=== PATIENT | female | born 1970 | race Caucasian/White ===

== ENCOUNTER 2023-03-31 16:16 | Emergency (ER) | payer SELFPAY | END 2023-03-31 18:30 | disposition home or self-care (01) | LOC: MW.ED 16:16 | DX: Z00.00 Encounter for general adult medical examination without abnormal findings (principal) | CPT/HCPCS: 99281; 99282 ==

== ENCOUNTER 2023-07-01 06:38 | Day surgery (SDC) | payer BC, MEDICAID ==
[~2023-07-01 06:38] MED LIST: ceFAZolin 2 GM in Sodium Chloride 0.9% 50 ML IV ONE
[2023-07-01] MEDS ORDERED: Propofol 200 MG/20 ML SDV ONE ×3 (07:14→11:00)
[2023-07-01] MEDS: Lactated Ringers 1,000 ML IV SCH (07:14)
[2023-07-01] MEDS ORDERED: Midazolam 1 MG/ML 2 ML SDV ONE ×2 (07:14→08:57)
[2023-07-01] MEDS ORDERED: fentaNYL 250 MCG/5 ML SDV ONE (07:14)
[2023-07-01] MEDS ORDERED: ceFAZolin 1 GM Vial ONE ×2 (07:19→07:49)
[2023-07-01] MEDS ORDERED: Bupivacaine 0.5% 30 ML SDV ONE (07:19)
[2023-07-01] MEDS ORDERED: Dexamethasone 4 MG/ML 5 ML MDV ONE (07:19)
[2023-07-01] MEDS ORDERED: Lidocaine 1% 20 ML MDV ONE (07:19)
[2023-07-01] MEDS ORDERED: Ondansetron 4 MG/2 ML SDV ONE (07:19)
[2023-07-01] MEDS ORDERED: Rocuronium Bromide 50 MG/5 ML Syringe ONE (07:34)
[2023-07-01] MEDS ORDERED: Succinylcholine/Sod PF 100 MG/5 ML SYRINGE IV ONE (07:34)
[2023-07-01] MEDS ORDERED: Ondansetron 4 MG/2 ML SDV IVPUSH PRN (07:36)
[2023-07-01] MEDS ORDERED: fentaNYL 50 MCG/ML SDV IVPUSH PRN (07:36)
[2023-07-01] MEDS ORDERED: Metoclopramide 10 MG/2 ML SDV IVPUSH PRN (07:36)
[2023-07-01] MEDS ORDERED: HYDROmorphone 1 MG/ML Syringe IVPUSH PRN (07:36)
[2023-07-01] MEDS ORDERED: Naloxone 0.4 MG/ML SDV IVPUSH PRN (07:36)
[2023-07-01] MEDS ORDERED: Morphine 2 MG/ML SYRINGE IVPUSH PRN (07:36)
[2023-07-01] MEDS ORDERED: droPERidol 5 MG/2 ML SDV IVPUSH PRN (07:36)
[2023-07-01] MEDS ORDERED: Albuterol 0.083% 2.5 MG/3 ML Neb Soln NEB PRN (07:36)
[2023-07-01] MEDS ORDERED: Water For Injection, Sterile 20 ML ONE ×2 (07:49→08:17)
[2023-07-01] MEDS ORDERED: ePHEDrine 50 MG/ML SDV ONE (08:17)
[2023-07-01] MEDS ORDERED: propofoL 0 ML ONE (09:19)
[2023-07-01] MEDS ORDERED: Ketorolac 30 MG/ML SDV ONE (11:31)
[2023-07-01] MEDS ORDERED: fentaNYL 100 MCG/2 ML SDV ONE (11:40)
== END 2023-07-01 13:30 | disposition home or self-care (01) ==
LOC: MW.SDS 06:38
PROVIDERS: ATTEND Podiatrist Foot & Ankle Surgery
DX: M20.11 Hallux valgus (acquired), right foot (principal); M20.41 Other hammer toe(s) (acquired), right foot; M20.31 Hallux varus (acquired), right foot; M77.8 Other enthesopathies, not elsewhere classified
CPT/HCPCS: 26535; 28270; 28297; C1713; J0131; J0330; J0665; J0690; J1100; J1885; J2250; J2704; J3010; J7120; 01480; J2405; J3490